=== PATIENT | female | born 1960 | race Caucasian/White ===

== ENCOUNTER → 2016-09-29 | Outpatient (CLI) | payer MEDICARE ==
[~2016-09-29] MED LIST: AMBIEN 5MG TABLE5 MG PO; CALCIUM CARBONATE; DAILY VALUE1 EACH PO; DESYREL 50MG50 MG PO; GOOD NEIGHBOR P1 T33; LEXAPRO20 M1 PO; LEXAPRO5 MG PO; LORAZEPAM0.5 M1 PO; NORCO 325 MG-51 TA1 PO; OMNICEF 300MG300 MG PO; POTASSIUM CHLO20 ME4; PRILOSEC20 M2 PO; TESSALON PERLE200 MG PO; VENLAFAXINE HCL50 MG PO; VESICARE; WELLBUTRIN PO; WELLBUTRIN XL300 MG PO; ZOFRAN ODT4 MG PO
== END ==
LOC: LAB 14:25
DX: N89.8 Other specified noninflammatory disorders of vagina (principal); R30.0 Dysuria
CPT/HCPCS: Q0111

== ENCOUNTER 2016-10-14 17:28 | Emergency (ER) | payer MEDICARE ==
[~2016-10-14 17:28] MED LIST changes: -CALCIUM CARBONATE; -DAILY VALUE1 EACH PO; -DESYREL 50MG50 MG PO; -GOOD NEIGHBOR P1 T33; -POTASSIUM CHLO20 ME4; -VENLAFAXINE HCL50 MG PO; -WELLBUTRIN PO
[2016-10-14] MEDS ORDERED: VENLAFAXINE HCL50 MG PO (17:41)
[2016-10-14] MEDS ORDERED: POTASSIUM CHLO20 ME4 (17:41)
[2016-10-14] MEDS ORDERED: DESYREL 50MG50 MG PO (17:41)
[2016-10-14] MEDS ORDERED: WELLBUTRIN PO (17:41)
[2016-10-14] MEDS ORDERED: CALCIUM CARBONATE (17:42)
[2016-10-14] MEDS ORDERED: DAILY VALUE1 EACH PO (17:42)
[2016-10-14] MEDS ORDERED: GOOD NEIGHBOR P1 T33 (17:43)
[2016-10-14 19:58] VITALS: BP 164/78
== END 2016-10-14 19:58 | disposition home or self-care (01) ==
LOC: ED 17:28
DX: S69.92XA Unspecified injury of left wrist, hand and finger(s), initial encounter (principal); M25.532 Pain in left wrist; G56.22 Lesion of ulnar nerve, left upper limb; X58.XXXA Exposure to other specified factors, initial encounter; Y93.89 Activity, other specified; Y92.009 Unspecified place in unspecified non-institutional (private) residence as the place of occurrence of the external cause

== ENCOUNTER → 2016-11-13 | Outpatient (CLI) | payer MEDICARE ==
[2016-10-14 19:58] VITALS: BP 164/78
[~2016-11-13] MED LIST changes: +CALCIUM CARBONATE; +DAILY VALUE1 EACH PO; +DESYREL 50MG50 MG PO; +GOOD NEIGHBOR P1 T33; +POTASSIUM CHLO20 ME4; +VENLAFAXINE HCL50 MG PO; +WELLBUTRIN PO
== END ==
LOC: LAB 16:48
DX: I10 Essential (primary) hypertension (principal); E78.2 Mixed hyperlipidemia; E53.8 Deficiency of other specified B group vitamins